=== PATIENT | female | born 1955 ===

== ENCOUNTER → 2021-06-28 08:19 | Outpatient (REF) | payer BC, SELFPAY | LOC: ANHLAB 08:19 | PROVIDERS: PCP Family Medicine; Visit Provider Nurse Practitioner | DX: D49.2 Neoplasm of unspecified behavior of bone, soft tissue, and skin (principal) | CPT/HCPCS: 88305 ==

== ENCOUNTER 2022-06-29 15:39 | Outpatient (NON) | payer MEDICARE, BC, SELFPAY | END 2022-06-29 15:40 | disposition home or self-care (01) | LOC: ANHLAB 15:42 | PROVIDERS: PCP Family Medicine; Visit Provider Nurse Practitioner | DX: L82.0 Inflamed seborrheic keratosis (principal) | CPT/HCPCS: 88305; 88312; 88313 ==